=== PATIENT | female | born 1985 | race Caucasian/White ===

== ENCOUNTER 2016-12-13 07:37 | Day surgery (SDC) | payer BC ==
--- NOTE | 2016-11-09 16:50 | History and Physical Report ---
HISTORY OF PRESENT ILLNESS: I saw Miss Pelletier in the office on 11/08/16 in regards to pain and bulging around her periumbilical region. Miss Pelletier is a very pleasant 31-year-old female who states that after her last , she felt this bulge in this region. This has always been reducible. She has had three pregnancies with three deliveries. One . There is no future plans for any pregnancies. PAST MEDICAL HISTORY: Significant aortic valve regurgitation. PAST SURGICAL HISTORY: x1. Sinus surgery. MEDICATIONS: She currently takes: control pills Motrin as needed. ALLERGIES: SHE HAS ALLERGIES TO PENICILLIN AND SULFA. SOCIAL HISTORY: She denies any tobacco usage. She describes a social alcohol usage. PHYSICAL EXAMINATION: GENERAL: Height is 5'1". Weight is 110. VITAL SIGNS: She is afebrile. Vital signs are stable. HEART: Regular. LUNGS: Clear. ABDOMEN: Soft. There is a 2 cm reducible umbilical hernia noted. Just superior to this, there is a moderate element of diastasis recti. We did have a long discussion at this point letting her know the differences between the two, that if she desired any repair of the diastasis that she needed to seek plastic surgery intervention. She declined this at this point. She just wants the umbilical hernia fixed. We will do this as an open repair. The risks include but not limited to; bleeding, infection, acute on chronic pain, recurrence, and she understands this fully. Teja Oconnor D.O. Date & Time JOB NUMBER: [id number] [facility]
[~2016-12-13 07:37] MED LIST: ACETAMINOPHEN 1000MG/100 ML PREMIX IV ONE; CLINDAMYCIN 600MG/50ML PREMIX 50 ML IVPB ONE
[2016-12-13 08:01] LABS: BASO % 0.8 % (0-6); EOS % 4.1 % (0-6); GRAN % 64.1 % (47-80); HEMATOCRIT 41.1 % (35.0-47.0); HEMOGLOBIN 13.6 gm/dl (11.6-16.0); LYMPH % 23.7 % (16-45); MEAN CELL VOLUME 89.2 fl (81-97); MEAN CORPUSCULAR HEMOGLOBIN 29.5 pg (27-33); MEAN CORPUSCULAR HGB CONC 33.1 g/dl (32-36); MEAN PLATELET VOLUME 10.4 fl (7.4-10.4); MONO % 7.3 % (0-9); PLATELET COUNT 256 K/uL (130-400); RED BLOOD COUNT 4.61 M/uL (3.80-5.40); RED CELL DISTRIBUTION WIDTH 11.7 % (11.5-14.5); WHITE BLOOD COUNT W/O DIFF 8.7 K/uL (4.2-12.2)
[2016-12-13] MEDS ORDERED: ONDANSETRON HCL IV 4 MG/2 ML VIAL IVP ONE (14:03)
[2016-12-13] MEDS ORDERED: BUPIVACAINE 0.25% W/EPI MPF 30ML VIAL IVP ONE (14:03)
[2016-12-13] MEDS ORDERED: HYDROCODONE/APAP 5/325MG TABLET PO ONE (14:03)
[2016-12-13] MEDS ORDERED: PROPOFOL 10 MG/ML VIAL IV ONE (15:15)
[2016-12-13] MEDS ORDERED: SEVOFLURANE 250 ML INH ONE (15:15)
[2016-12-13] MEDS ORDERED: KETOROLAC 30 MG/ML VIAL IVP ONE (15:15)
[2016-12-13] MEDS ORDERED: LIDOCAINE 2% MDV (20MG/ML) 20ML VIAL IV ONE (15:15)
--- NOTE | 2016-12-15 12:37 | Operative Note ---
OPERATIVE REPORT DATE OF PROCEDURE: 12/13/2016. SURGEON: Teja Oconnor D.O. REFERRING PHYSICIAN: Roxi Hoff M.D. PREOPERATIVE DIAGNOSIS: INCARCERATED UMBILICAL HERNIA. POSTOPERATIVE DIAGNOSIS: INCARCERATED UMBILICAL HERNIA. PROCEDURE: Open umbilical herniorrhaphy with mesh. INDICATIONS: The patient is a 31-year-old female who presented to the clinic with pain and bulging in her periumbilical region. She stated that her navel popped after her . She had two things going on. One was an element of diastasis recti superior to her navel. The other one was an incarcerated umbilical hernia. We did discuss repair, risks, benefits, and alternatives. I let her know that we certainly could repair the hernia. However, if she wanted the diastasis addressed, this would be a combination case with a plastic surgeon. She felt she did not want to address the diastasis and was all right with the cosmetic appearance of this. The risks include, but are not limited to , bleeding, infection, acute and chronic pain, recurrence, and an unfavorable cosmetic outcome. She understood this fully. Therefore consent was signed and questions were answered. DESCRIPTION OF PROCEDURE: She was taken to the operating room and was placed in the supine position. General anesthesia was administered per the Department of Anesthesia. The patient's abdomen was prepped and draped in the usual fashion. A curvilinear infraumbilical region was anesthetized with a total of 5.0 cc of 0.25% Sensorcaine with epinephrine. A 3.5-cm curvilinear incision was made. This was carried down to the anterior rectus fascia. At this time the umbilical skin was encircled and dissected free from the underlying hernia sac. Clean circumferential fascial edges were obtained. The hernia sac was then amputated and passed off the field. The hernia measured about 1.5 cm. At this time an 8.0-cm Ventralight mesh was obtained. This was placed into intraperitoneal position. The upper skirt was sutured to anterior rectus fascia with 2-0 Vicryl. The tail was overlapped and was sutured into place as well. At this time the umbilical skin was tacked down to the fascia with 3-0 Vicryl. The skin was closed with 4-0 Vicryl. She did have what looked like a dysplastic nevus right on the fold of this navel. This was cauterized off as well. Steri-Strips were applied. She was taken to the recovery room in satisfactory condition. Teja Oconnor D.O. Date Time JOB NUMBER: [id number] cc: Angelica Rodriguez
== END 2016-12-13 11:35 | disposition home or self-care (01) ==
LOC: SUR 07:37
PROVIDERS: ATTEND Surgery
DX: K42.9 Umbilical hernia without obstruction or gangrene (principal)
CPT/HCPCS: 49587; 00840; 85025; 81025; J1885; J2405